=== PATIENT | female | born 1975 | race Caucasian/White ===

== ENCOUNTER 2016-10-31 13:52 | Outpatient (CLI) | payer OTHER ==
[~2016-10-31 13:52] MED LIST: VITAMIN C TR500 M1 PO
--- NOTE | 2016-10-31 15:39 | DIAGNOSTIC IMAGING REPORT ---
PROCEDURE: MR CERVICAL SPINE W/O CONT INDICATION: CERVICAL SPINAL STENOSIS TECHNIQUE: Noncontrast T1, T2, and STIR sagittal images. T2 and gradient axial images. COMPARISON: None. FINDINGS: The spinal cord is normal in size and signal intensity. Overall the spinal canal is small. C1-2: Normal. C2-3: Normal. C3-4: Normal. C4-5: Normal C5-6: There is a central a bulging disc at C5-6. This is a slightly asymmetric on the right with posterior displacement of the nerve root. C6-7: Previous fusion at C6-7. C7-T1: Normal. IMPRESSION: 1. Previous fusion C6-7. Now with central bulging disc at the C5-6 slightly greater on the right.
== END 2016-10-31 23:00 ==
LOC: MRI SRH 13:52
DX: M50.222 Other cervical disc displacement at C5-C6 level (principal); Z98.1 Arthrodesis status

== ENCOUNTER 2017-02-22 12:01 | Outpatient (CLI) | payer OTHER | END 2017-02-22 23:00 | LOC: LAB SRH 12:01 | DX: R34 Anuria and oliguria (principal) | CPT/HCPCS: 90074; 90100 ==